=== PATIENT | female | born 1950 | race African-American/Black ===

== ENCOUNTER 2018-03-11 13:08 | Inpatient (IN) | payer BC ==
[~2018-03-11] VITALS: Ht 167.6 cm; Wt 58.3 kg
[~2018-03-11 13:08] MED LIST: ALEN70TA46 MT; ASPI-1159 MT; CHOL100053 PO; DOCU-138 MT; SIMV10TA6 PO; TAP5 MT
[2018-03-11] MEDS ORDERED: SODIUM CHLORIDE 0.9% 1,000 ML IV ONE (15:27)
[2018-03-11] MEDS ORDERED: ONDANSETRON HCL 4MG/2ML INJ IV STA (15:27)
[2018-03-11 16:47] LABS: BASOPHILS % 0.5 % (0.0-2.0); EOSINOPHILS % 0.1 % (0.0-5.0); HEMATOCRIT. 41.8 % (36.0-48.0); HEMOGLOBIN. 13.9 g/dL (12.0-16.0); LYMPHOCYTES % 20.4 % (20.0-50.0); MEAN CORPUSCULAR HEMOGLOBIN 28.5 pg (28.0-32.0); MEAN CORPUSCULAR VOLUME 85.5 fL (81.0-99.0); MEAN PLATELET VOLUME 9.7 fl (7.4-10.4); MONOCYTES % 5.5 % (2.0-8.0); NEUTROPHILS % 73.5 % (40.0-76.0); PLATELET 226 x1000/uL (130-400); RED CELL DISTRIBUTION WIDTH 16.2 % (11.6-14.6)
[2018-03-11 16:52] LABS: CHLORIDE 88 mEq/L (98-107)
[2018-03-11] MEDS ORDERED: ASPIRIN 325MG EC TABLET PO SCH (18:00)
[2018-03-11] MEDS ORDERED: AMLODIPINE 10MG TABLET PO SCH (18:00)
[2018-03-11] MEDS ORDERED: BENAZEPRIL 10MG TABLET PO SCH (18:00)
[2018-03-11 22:00] VITALS: BP 138/88
[2018-03-11 22:21] VITALS: BP 138/88
[2018-03-11 23:01] VITALS: BP 138/88
[2018-03-11] MEDS ORDERED: ACETAMINOPHEN 325MG TABLET PO PRN (23:30)
[2018-03-11] MEDS ORDERED: CLONIDINE 0.1MG TABLET PO PRN (23:30)
[2018-03-11] MEDS ORDERED: ONDANSETRON HCL 4MG/2ML INJ IV PRN (23:30)
[2018-03-11] MEDS ORDERED: BENA1TAB19 PO (23:37)
[2018-03-11] MEDS ORDERED: AMLO5TAB4 PO (23:37)
[2018-03-11] MEDS ORDERED: CHOLECALCIFEROL 50000 UNIT PO SCH (23:45)
[2018-03-12] VITALS: BP 153/88
[2018-03-12] MEDS ORDERED: ALENDRONATE SODIUM MT SCH (00:30)
[2018-03-12 04:00] VITALS: BP 145/83
[2018-03-12] MEDS: PANTOPRAZOLE 40MG DR TABLET PO SCH (06:51)
[2018-03-12] MEDS ORDERED: ALENDRONATE SODIUM 35MG TABLET PO SCH (07:10)
[2018-03-12 08:00] VITALS: BP 167/99
[2018-03-12 08:24] LABS: CREATINE KINASE MB FRACTION 3.3 ng/mL (0.5-3.6)
[2018-03-12] MEDS: BENAZEPRIL 10MG TABLET PO SCH (08:37)
[2018-03-12] MEDS: HYDROCHLOROTHIAZIDE 25MG TABLET PO SCH (08:38)
[2018-03-12] MEDS: ENOXAPARIN 40MG/0.4ML SYR SUBCUT SCH (08:39)
[2018-03-12] MEDS: ASPIRIN 81MG TABLET PO SCH (08:39)
[2018-03-12] MEDS: AMLODIPINE 5MG TABLET PO SCH (08:39)
[2018-03-12] MEDS ORDERED: SIMVASTATIN PO SCH (09:00)
[2018-03-12] MEDS ORDERED: MEDICATION NOT ON FORMULARY EA (Aspirin (Aspirin Low Dose) 1 TAB) MT SCH (09:00)
[2018-03-12] MEDS ORDERED: ERGOCALCIFEROL 50000UNITS CAPSULE PO SCH (09:00)
[2018-03-12] MEDS ORDERED: MEDICATION NOT ON FORMULARY EA (Amlodipine Besylate (Norvasc) 5 MG) PO SCH (09:00)
[2018-03-12] MEDS ORDERED: [UNRECOGNIZED DRUG - OTHER] PO SCH (09:00)
[2018-03-12] MEDS ORDERED: HYDROCHLOROTHIAZIDE PO SCH (09:00)
[2018-03-12] MEDS ORDERED: BENAZEPRIL PO SCH (09:00)
[2018-03-12 12:00] VITALS: BP 168/92
[2018-03-12 15:23] LABS: HEMATOCRIT 44.9 % (36.0-48.0); HEMOGLOBIN 14.9 g/dL (12.0-16.0); MEAN CORPUSCULAR HEMOGLOBIN 28.1 pg (28.0-32.0); MEAN CORPUSCULAR VOLUME 84.5 fL (81.0-99.0); PLATELET 244 x1000/uL (130-400); RED BLOOD CELL COUNT 5.31 mill/uL (4.2-5.4); RED CELL DISTRIBUTION WIDTH 15.8 % (11.6-14.6)
[2018-03-12 15:25] LABS: CHLORIDE 90 mEq/L (98-107)
[2018-03-12 16:00] VITALS: BP 131/92
[2018-03-12] MEDS: SODIUM CHLORIDE 0.9% 1,000 ML IV SCH (17:30)
[2018-03-12] MEDS ORDERED: POTASSIUM CHLORIDE INJ 40 MEQ in DEXT 5% WATER 500 ML IV SCH ×2 (17:30→21:30)
[2018-03-12 20:00] VITALS: BP 149/84
[2018-03-12] MEDS: ATORVASTATIN CALCIUM 10MG TABLET PO SCH (20:40)
[2018-03-12] MEDS ORDERED: ATORVASTATIN CALCIUM 20MG TABLET PO SCH (21:00)
[2018-03-13] VITALS: BP 170/88
[2018-03-13 04:00] VITALS: BP 98/65
[2018-03-13] MEDS: PANTOPRAZOLE 40MG DR TABLET PO SCH (06:21)
[2018-03-13] MEDS: SODIUM CHLORIDE 0.9% 1,000 ML IV SCH ×3 (06:50→20:29)
[2018-03-13 08:00] VITALS: BP 122/79
[2018-03-13] MEDS: AMLODIPINE 5MG TABLET PO SCH (08:27)
[2018-03-13] MEDS: HYDROCHLOROTHIAZIDE 25MG TABLET PO SCH (08:27)
[2018-03-13] MEDS: BENAZEPRIL 10MG TABLET PO SCH (08:28)
[2018-03-13] MEDS: ASPIRIN 81MG TABLET PO SCH (08:28)
[2018-03-13] MEDS: ENOXAPARIN 40MG/0.4ML SYR SUBCUT SCH (08:29)
[2018-03-13 08:45] LABS: BASOPHILS % 0.5 % (0.0-2.0); EOSINOPHILS % 0.6 % (0.0-5.0); HEMATOCRIT. 43.7 % (36.0-48.0); HEMOGLOBIN. 14.2 g/dL (12.0-16.0); LYMPHOCYTES % 39.5 % (20.0-50.0); MEAN CORPUSCULAR VOLUME 86.1 fL (81.0-99.0); MEAN PLATELET VOLUME 9.3 fl (7.4-10.4); MONOCYTES % 7.9 % (2.0-8.0); NEUTROPHILS % 51.5 % (40.0-76.0); PLATELET 233 x1000/uL (130-400); RED BLOOD CELL COUNT 5.07 mill/uL (4.2-5.4); RED CELL DISTRIBUTION WIDTH 16.1 % (11.6-14.6)
[2018-03-13] MEDS ORDERED: METHIMAZOLE 5MG TABLET PO SCH (09:00)
[2018-03-13 09:10] LABS: CHLORIDE 91 mEq/L (98-107)
[2018-03-13 12:00] VITALS: BP 101/64
[2018-03-13] MEDS ORDERED: POTASSIUM CHLORIDE INJ 40 MEQ in DEXT 5% WATER 250 ML IV NR (12:00)
[2018-03-13 15:19] LABS: CHLORIDE 95 mEq/L (98-107)
[2018-03-13] MEDS ORDERED: POTASSIUM CHLORIDE 20MEQ TABLET SR PO NR (15:30)
[2018-03-13 16:00] VITALS: BP 129/74
[2018-03-13] MEDS: POTASSIUM CHLORIDE 20MEQ TABLET SR PO SCH ×2 (17:17→18:36)
[2018-03-13 20:00] VITALS: BP 102/62
[2018-03-13] MEDS: ATORVASTATIN CALCIUM 10MG TABLET PO SCH (20:25)
[2018-03-14] VITALS: BP 114/69
[2018-03-14 04:00] VITALS: BP_SYST 110; BP_SYST 113; BP_SYST 122; BP_DIAS 62; BP_DIAS 71; BP_DIAS 81
[2018-03-14] MEDS: PANTOPRAZOLE 40MG DR TABLET PO SCH (06:51)
[2018-03-14 07:11] LABS: BASOPHILS % 0.7 % (0.0-2.0); EOSINOPHILS % 2.1 % (0.0-5.0); HEMATOCRIT. 39.5 % (36.0-48.0); HEMOGLOBIN. 12.9 g/dL (12.0-16.0); LYMPHOCYTES % 41.5 % (20.0-50.0); MEAN CORPUSCULAR HEMOGLOBIN 28.1 pg (28.0-32.0); MEAN CORPUSCULAR VOLUME 85.9 fL (81.0-99.0); MEAN PLATELET VOLUME 9.8 fl (7.4-10.4); MONOCYTES % 11.1 % (2.0-8.0); NEUTROPHILS % 44.6 % (40.0-76.0); PLATELET 206 x1000/uL (130-400); RED CELL DISTRIBUTION WIDTH 16.1 % (11.6-14.6)
[2018-03-14 08:00] VITALS: BP 132/72
[2018-03-14 08:12] LABS: CHLORIDE 102 mEq/L (98-107)
[2018-03-14] MEDS: ASPIRIN 81MG TABLET PO SCH (08:38)
[2018-03-14] MEDS: AMLODIPINE 5MG TABLET PO SCH (08:38)
[2018-03-14] MEDS: BENAZEPRIL 10MG TABLET PO SCH (08:38)
[2018-03-14] MEDS: ENOXAPARIN 40MG/0.4ML SYR SUBCUT SCH (08:39)
[2018-03-14 12:00] VITALS: BP 146/77
[2018-03-14 13:58] VITALS: BP 146/77
[2018-03-15] MEDS ORDERED: BENAZEPRIL 10MG TABLET PO SCH (09:00)
== END 2018-03-14 15:34 | disposition home or self-care (01) | DRG 640 ==
LOC: ER 13:08 → 8WST 17:31 → ENRESERV 20:30
PROVIDERS: ADMIT Internal Medicine; ATTEND Internal Medicine
DX: E86.0 Dehydration (principal); I50.33 Acute on chronic diastolic (congestive) heart failure; J44.1 Chronic obstructive pulmonary disease with (acute) exacerbation; K52.9 Noninfective gastroenteritis and colitis, unspecified; E87.1 Hypo-osmolality and hyponatremia; I11.0 Hypertensive heart disease with heart failure; F17.200 Nicotine dependence, unspecified, uncomplicated; E78.5 Hyperlipidemia, unspecified; T50.905A Adverse effect of unspecified drugs, medicaments and biological substances, initial encounter; E87.6 Hypokalemia; E05.90 Thyrotoxicosis, unspecified without thyrotoxic crisis or storm; I25.10 Atherosclerotic heart disease of native coronary artery without angina pectoris; I27.20 Pulmonary hypertension, unspecified; Z79.899 Other long term (current) drug therapy; Z79.82 Long term (current) use of aspirin; Y92.89 Other specified places as the place of occurrence of the external cause
CPT/HCPCS: 36415; 71045; 80048; 80061; 82550; 82553; 83735; 83880; 84132; 84443; 84484; 85027; 93005; 93306; 93970; 96361; 96374; 99285; C1893; J1650; J2405; J3480; J7030; J7040; J7060

== ENCOUNTER 2018-06-05 15:29 | Inpatient (IN) | payer BC ==
[~2018-06-05] VITALS: Ht 167.6 cm; Wt 56.7 kg
[~2018-06-05 15:29] MED LIST changes: +AMLO5TAB4 PO
[2018-06-05] MEDS ORDERED: IPRATROPIUM BROMIDE (0.02%) 0.5MG/2.5ML NEB HHN STA (15:51)
[2018-06-05] MEDS ORDERED: SODIUM CHLORIDE 0.9% 500 ML IV ONE (15:51)
[2018-06-05] MEDS ORDERED: ALBUTEROL (0.083%) 2.5MG/3ML NEB HHN STA (15:51)
[2018-06-05] MEDS ORDERED: ALBUTEROL (0.083%) 2.5MG/3ML NEB ONE (16:09)
[2018-06-05] MEDS ORDERED: IPRATROPIUM BROMIDE (0.02%) 0.5MG/2.5ML NEB ONE (16:09)
[2018-06-05 16:15] LABS: BASOPHILS % 1.9 % (0.0-2.0); EOSINOPHILS % 1.2 % (0.0-5.0); HEMATOCRIT. 41.2 % (36.0-48.0); HEMOGLOBIN. 13.5 g/dL (12.0-16.0); LYMPHOCYTES % 24.8 % (20.0-50.0); MEAN CORPUSCULAR HEMOGLOBIN 27.6 pg (28.0-32.0); MEAN CORPUSCULAR VOLUME 84.6 fL (81.0-99.0); MEAN PLATELET VOLUME 9.1 fl (7.4-10.4); MONOCYTES % 3.3 % (2.0-8.0); NEUTROPHILS % 68.8 % (40.0-76.0); PLATELET 253 x1000/uL (130-400); RED BLOOD CELL COUNT 4.87 mill/uL (4.2-5.4); RED CELL DISTRIBUTION WIDTH 14.9 % (11.6-14.6)
[2018-06-05 16:19] LABS: CHLORIDE 105 mEq/L (98-107)
[2018-06-05 16:21] LABS: PARTIAL THROMBOPLASTIN TIME 31.8 sec (23.4-31.0); PROTHROMBIN TIME 10.1 sec (9.6-11.0)
[2018-06-05] MEDS ORDERED: DOCUSATE SODIUM 100MG CAPSULE PO PRN (16:45)
[2018-06-05] MEDS ORDERED: NA PHOS,M-B/NA PHOS,DI-BA ENEMA 118ML PR PRN (16:45)
[2018-06-05] MEDS ORDERED: MAGNESIUM/ALUMINUM HYDROXIDE/SIMETHICONE 30ML UDC PO PRN (16:45)
[2018-06-05] MEDS ORDERED: DIPHENHYDRAMINE 50MG/ML VIAL IV PRN (16:45)
[2018-06-05] MEDS ORDERED: ONDANSETRON HCL 4MG/2ML INJ IV PRN (16:45)
[2018-06-05] MEDS ORDERED: LORAZEPAM 0.5MG TABLET PO PRN (16:45)
[2018-06-05] MEDS ORDERED: GUAIFENESIN 200MG/10ML SUGAR FREE UDC PO PRN (16:45)
[2018-06-05] MEDS ORDERED: HYDROCODONE/ACETAMINOPHEN 5/325MG TABLET PO PRN (16:45)
[2018-06-05] MEDS ORDERED: ACETAMINOPHEN 650MG SUPP PR PRN (16:45)
[2018-06-05] MEDS ORDERED: CLONIDINE 0.1MG TABLET PO PRN (16:45)
[2018-06-05] MEDS ORDERED: ACETAMINOPHEN 325MG TABLET PO PRN (16:45)
[2018-06-05] MEDS ORDERED: IPRATROPIUM/ALBUTEROL 0.5-3(2.5)MG/3ML NEB INH PRN (16:45)
[2018-06-05] MEDS ORDERED: POTASSIUM CHLORIDE 20MEQ TABLET SR PO ONE (17:00)
[2018-06-05] MEDS ORDERED: SODIUM CHLORIDE 0.45% 1,000 ML IV SCH (17:15)
[2018-06-05 18:02] LABS: CLARITY URINE CLEAR (CLEAR); COLOR URINE YELLOW (YELLOW); KETONES URINE NEGATIVE (NEGATIVE); LEUKOCYTE ESTERASE URINE NEGATIVE (NEGATIVE); NITRITE URINE NEGATIVE (NEGATIVE); OCCULT BLOOD URINE NEGATIVE (NEGATIVE); PROTEIN URINE NEGATIVE (NEGATIVE); SPECIFIC GRAVITY URINE 1.004 (1.005-1.030); UROBILINOGEN URINE 0.2 E.U./dL (0.2-1.0)
[2018-06-05 18:18] LABS: *AMPHETAMINES SCREEN URINE NEGATIVE (NEGATIVE); *BARBITURATES SCREEN URINE NEGATIVE (NEGATIVE); *COCAINE SCREEN URINE NEGATIVE (NEGATIVE); CANNABINOID URINE SCREEN PRESUMTIVE POSITIVE (NEGATIVE); METHADONE URINE SCREEN NEGATIVE (NEGATIVE); OPIATES URINE SCREEN NEGATIVE (NEGATIVE); PHENCYCLIDINE URINE SCREEN NEGATIVE (NEGATIVE)
[2018-06-05 18:19] LABS: *BENZODIAZEPINES SCREEN URINE NEGATIVE (NEGATIVE)
[2018-06-05 21:51] VITALS: BP 168/81
[2018-06-05 22:00] VITALS: BP 168/81
[2018-06-05] MEDS ORDERED: POTASSIUM CHLORIDE 20MEQ TABLET SR PO NR (22:00)
[2018-06-05] MEDS: DILTIAZEM HCL 30MG TABLET PO SCH (22:00)
[2018-06-05] MEDS: PANTOPRAZOLE SODIUM 40 MG/VIAL IV SCH ×2 (22:00→22:43)
[2018-06-05] MEDS: METRONIDAZOLE 500MG TABLET PO SCH (22:42)
[2018-06-05] MEDS: AMLODIPINE 5MG TABLET PO SCH (22:43)
[2018-06-05] MEDS ORDERED: LEVOFLOXACIN 500MG PREMIX 100 ML IV NR (23:00)
[2018-06-06] VITALS: BP 149/83
[2018-06-06] MEDS ORDERED: IRON (00:41)
[2018-06-06] MEDS: IPRATROPIUM/ALBUTEROL 0.5-3(2.5)MG/3ML NEB HHN SCH ×4 (01:00→13:36)
[2018-06-06 02:21] LABS: CREATINE KINASE MB FRACTION 1.2 ng/mL (0.5-3.6)
[2018-06-06 04:00] VITALS: BP_SYST 120; BP_SYST 138; BP_SYST 154; BP_DIAS 75; BP_DIAS 84
[2018-06-06] MEDS: DILTIAZEM HCL 30MG TABLET PO SCH (05:16)
[2018-06-06] MEDS: METRONIDAZOLE 500MG TABLET PO SCH (05:16)
[2018-06-06 06:17] LABS: BASOPHILS % 1.4 % (0.0-2.0); EOSINOPHILS % 2.5 % (0.0-5.0); HEMATOCRIT. 35.7 % (36.0-48.0); HEMOGLOBIN. 11.6 g/dL (12.0-16.0); LYMPHOCYTES % 44.2 % (20.0-50.0); MEAN CORPUSCULAR HEMOGLOBIN 27.9 pg (28.0-32.0); MEAN CORPUSCULAR VOLUME 85.9 fL (81.0-99.0); MEAN PLATELET VOLUME 9.5 fl (7.4-10.4); MONOCYTES % 8.3 % (2.0-8.0); NEUTROPHILS % 43.6 % (40.0-76.0); PLATELET 222 x1000/uL (130-400); RED BLOOD CELL COUNT 4.15 mill/uL (4.2-5.4); RED CELL DISTRIBUTION WIDTH 14.6 % (11.6-14.6)
[2018-06-06 06:24] LABS: LDL CHOLESTEROL 104 mg/dL (5-100)
[2018-06-06 06:25] LABS: CREATINE KINASE 48 IU/L (26-192); HDL CHOLESTEROL 47 mg/dL (40-59)
[2018-06-06 06:27] LABS: CREATINE KINASE MB FRACTION < 1.0 ng/mL (0.5-3.6)
[2018-06-06 08:00] VITALS: BP 134/71
[2018-06-06] MEDS: AMLODIPINE 5MG TABLET PO SCH (08:51)
[2018-06-06] MEDS: PANTOPRAZOLE SODIUM 40 MG/VIAL IV SCH (08:52)
[2018-06-06] MEDS ORDERED: ENOXAPARIN 40MG/0.4ML SYR SUBCUT SCH (09:00)
[2018-06-06] MEDS ORDERED: ASPIRIN 81MG EC TABLET PO SCH (09:00)
[2018-06-06] MEDS ORDERED: POTASSIUM CHLORIDE 20MEQ TABLET SR PO NR (10:30)
[2018-06-06] MEDS ORDERED: SODIUM CHLORIDE 0.9% 250 ML IV ONE (10:45)
[2018-06-06 11:11] LABS: BASOPHILS % 2.7 % (0.0-2.0); EOSINOPHILS % 0.7 % (0.0-5.0); HEMATOCRIT. 36.5 % (36.0-48.0); HEMOGLOBIN. 11.9 g/dL (12.0-16.0); LYMPHOCYTES % 31.6 % (20.0-50.0); MEAN CORPUSCULAR HEMOGLOBIN 27.9 pg (28.0-32.0); MEAN CORPUSCULAR VOLUME 85.2 fL (81.0-99.0); MEAN PLATELET VOLUME 8.7 fl (7.4-10.4); PLATELET 222 x1000/uL (130-400); RED BLOOD CELL COUNT 4.28 mill/uL (4.2-5.4); RED CELL DISTRIBUTION WIDTH 14.8 % (11.6-14.6)
[2018-06-06 11:30] LABS: CHLORIDE 108 mEq/L (98-107)
[2018-06-06 11:38] VITALS: BP_SYST 135; BP_SYST 138; BP_DIAS 76; BP_DIAS 88; BP_DIAS 93
[2018-06-06] MEDS ORDERED: LEVOFLOXACIN 250MG PREMIX 50 ML IV SCH ×2 (14:00→23:00)
[2018-06-06 14:35] VITALS: BP 135/88
== END 2018-06-06 15:01 | disposition home or self-care (01) | DRG 74 ==
LOC: ER 15:29 → 6WST 16:50 → EDBEDREQ 16:57 → ENRESERV 20:48
PROVIDERS: ADMIT Internal Medicine; ATTEND Internal Medicine
DX: G90.8 Other disorders of autonomic nervous system (principal); J98.11 Atelectasis; J44.1 Chronic obstructive pulmonary disease with (acute) exacerbation; I27.20 Pulmonary hypertension, unspecified; I10 Essential (primary) hypertension; J44.9 Chronic obstructive pulmonary disease, unspecified; E78.5 Hyperlipidemia, unspecified; E86.0 Dehydration; R73.9 Hyperglycemia, unspecified; E05.90 Thyrotoxicosis, unspecified without thyrotoxic crisis or storm; H05.20 Unspecified exophthalmos; K52.9 Noninfective gastroenteritis and colitis, unspecified; E16.2 Hypoglycemia, unspecified; I95.9 Hypotension, unspecified; E87.6 Hypokalemia; I49.9 Cardiac arrhythmia, unspecified; F17.210 Nicotine dependence, cigarettes, uncomplicated; M81.0 Age-related osteoporosis without current pathological fracture; Z86.73 Personal history of transient ischemic attack (TIA), and cerebral infarction without residual deficits; Z79.82 Long term (current) use of aspirin; Z79.899 Other long term (current) drug therapy; Z71.6 Tobacco abuse counseling
CPT/HCPCS: 36415; 71045; 80048; 80061; 80305; 80320; 82550; 82553; 82962; 83735; 83880; 84439; 84443; 84484; 93005; 93880; 94640; 99285; C9113; J1650; J1956; J7040; J7050; J7611; J7620; G0480

== ENCOUNTER 2018-06-18 18:13 | Inpatient (IN) | payer BC ==
[~2018-06-18] VITALS: Ht 167.6 cm; Wt 56.7 kg
[~2018-06-18 18:13] MED LIST changes: +IRON
[2018-06-18] MEDS ORDERED: HYDRALAZINE 20MG/ML VIAL IV ONE (20:00)
[2018-06-18 20:01] LABS: CLARITY URINE CLEAR (CLEAR); COLOR URINE YELLOW (YELLOW); KETONES URINE NEGATIVE (NEGATIVE); LEUKOCYTE ESTERASE URINE NEGATIVE (NEGATIVE); NITRITE URINE NEGATIVE (NEGATIVE); OCCULT BLOOD URINE TRACE (NEGATIVE); PH URINE 7.5 (4.5-8.0); PROTEIN URINE TRACE (NEGATIVE); SPECIFIC GRAVITY URINE 1.013 (1.005-1.030); UROBILINOGEN URINE 0.2 E.U./dL (0.2-1.0)
[2018-06-18 20:29] LABS: CHLORIDE 101 mEq/L (98-107)
[2018-06-18 20:30] LABS: BASOPHILS % 0.6 % (0.0-2.0); HEMATOCRIT. 39.4 % (36.0-48.0); HEMOGLOBIN. 12.8 g/dL (12.0-16.0); LYMPHOCYTES % 15.1 % (20.0-50.0); MEAN CORPUSCULAR HEMOGLOBIN 27.4 pg (28.0-32.0); MEAN CORPUSCULAR VOLUME 84.5 fL (81.0-99.0); MEAN PLATELET VOLUME 9.6 fl (7.4-10.4); MONOCYTES % 2.4 % (2.0-8.0); NEUTROPHILS % 81.9 % (40.0-76.0); PLATELET 277 x1000/uL (130-400); RED BLOOD CELL COUNT 4.67 mill/uL (4.2-5.4); RED CELL DISTRIBUTION WIDTH 15.1 % (11.6-14.6)
[2018-06-18] MEDS ORDERED: SODIUM CHLORIDE 0.9% 1,000 ML IV ONE (20:45)
[2018-06-18] MEDS ORDERED: ONDANSETRON HCL 4MG/2ML INJ IV ONE ×2 (20:45→23:00)
[2018-06-19 10:10] VITALS: BP_SYST 167; BP_SYST 170; BP_DIAS 86; BP_DIAS 88
[2018-06-19] MEDS ORDERED: DOCUSATE SODIUM 100MG CAPSULE PO PRN (11:30)
[2018-06-19] MEDS ORDERED: IPRATROPIUM/ALBUTEROL 0.5-3(2.5)MG/3ML NEB INH PRN (11:30)
[2018-06-19] MEDS ORDERED: ONDANSETRON HCL 4MG/2ML INJ IV PRN (11:30)
[2018-06-19] MEDS ORDERED: LORAZEPAM 0.5MG TABLET PO PRN (11:30)
[2018-06-19] MEDS ORDERED: ACETAMINOPHEN 650MG SUPP PR PRN (11:30)
[2018-06-19] MEDS ORDERED: DIPHENHYDRAMINE 50MG/ML VIAL IV PRN (11:30)
[2018-06-19] MEDS ORDERED: HYDROCODONE/ACETAMINOPHEN 5/325MG TABLET PO PRN (11:30)
[2018-06-19] MEDS ORDERED: CLONIDINE 0.1MG TABLET PO PRN (11:30)
[2018-06-19] MEDS ORDERED: MAGNESIUM/ALUMINUM HYDROXIDE/SIMETHICONE 30ML UDC PO PRN (11:30)
[2018-06-19] MEDS ORDERED: NA PHOS,M-B/NA PHOS,DI-BA ENEMA 118ML PR PRN (11:30)
[2018-06-19] MEDS ORDERED: ACETAMINOPHEN 325MG TABLET PO PRN (11:30)
[2018-06-19] MEDS ORDERED: GUAIFENESIN 200MG/10ML SUGAR FREE UDC PO PRN (11:30)
[2018-06-19] MEDS ORDERED: LOSARTAN POTASSIUM 50 MG TABLET PO SCH ×2 (11:48→14:45)
[2018-06-19] MEDS ORDERED: BENA5TAB6 PO (11:55)
[2018-06-19 12:00] VITALS: BP 174/97
[2018-06-19] MEDS ORDERED: ENOXAPARIN 40MG/0.4ML SYR SUBCUT SCH (12:00)
[2018-06-19 12:55] LABS: HEMATOCRIT. 39.8 % (36.0-48.0); MEAN CORPUSCULAR HEMOGLOBIN 27.5 pg (28.0-32.0); MEAN CORPUSCULAR VOLUME 84.2 fL (81.0-99.0); PLATELET 316 x1000/uL (130-400); RED BLOOD CELL COUNT 4.72 mill/uL (4.2-5.4); RED CELL DISTRIBUTION WIDTH 15.3 % (11.6-14.6)
[2018-06-19 13:04] LABS: PROTHROMBIN TIME 9.9 sec (9.6-11.0)
[2018-06-19 13:06] LABS: CHLORIDE 99 mEq/L (98-107)
[2018-06-19 13:25] LABS: PLATELET ESTIMATE NORMAL
[2018-06-19 13:43] LABS: VITAMIN B12 SERUM 309 pg/mL (211-911)
[2018-06-19] MEDS ORDERED: METRONIDAZOLE 500MG TABLET PO SCH (14:00)
[2018-06-19] MEDS ORDERED: POTASSIUM CHLORIDE 20MEQ TABLET SR PO NR (14:30)
[2018-06-19] MEDS ORDERED: SODIUM CHLORIDE 0.9% 1,000 ML IV SCH (14:30)
[2018-06-19] MEDS ORDERED: AMLODIPINE 5MG TABLET PO NR (14:45)
[2018-06-19 16:00] VITALS: BP 160/86
[2018-06-19 18:51] VITALS: BP 161/86
[2018-06-19] MEDS ORDERED: AMLODIPINE 5MG TABLET PO SCH (21:00)
[2018-06-19] MEDS ORDERED: FAMOTIDINE 20MG/2ML VIAL IV SCH ×2 (21:00)
[2018-06-20] MEDS ORDERED: ASPIRIN 81MG EC TABLET PO SCH (09:00)
== END 2018-06-19 19:25 | disposition home or self-care (01) | DRG 372 ==
LOC: ER 18:13 → 7WST 21:40 → EDBEDREQTM 21:48 → EDBEDREQ 21:48 → ENRESERV 06-19 09:18 → 7WST 06-19 13:25
PROVIDERS: ADMIT Internal Medicine; ATTEND Internal Medicine
DX: A04.72 Enterocolitis due to Clostridium difficile, not specified as recurrent (principal); J44.1 Chronic obstructive pulmonary disease with (acute) exacerbation; N39.0 Urinary tract infection, site not specified; I10 Essential (primary) hypertension; K52.9 Noninfective gastroenteritis and colitis, unspecified; F41.9 Anxiety disorder, unspecified; E05.00 Thyrotoxicosis with diffuse goiter without thyrotoxic crisis or storm; R74.8 Abnormal levels of other serum enzymes; I45.81 Long QT syndrome; R63.4 Abnormal weight loss; I27.20 Pulmonary hypertension, unspecified; E87.6 Hypokalemia; E86.0 Dehydration; E78.5 Hyperlipidemia, unspecified; Z79.82 Long term (current) use of aspirin; Z79.899 Other long term (current) drug therapy; Z68.20 Body mass index [BMI] 20.0-20.9, adult
CPT/HCPCS: 36415; 71045; 74176; 82378; 82550; 82553; 82607; 83036; 83880; 84484; 86038; 93005; 93970; 96361; 96374; 96375; 96376; 99285; J0360; J1650; J2405; J7030

== ENCOUNTER 2022-04-12 06:18 | Inpatient (IN) | payer BC ==
[~2022-04-12] VITALS: Ht 167.6 cm; Wt 58.5 kg
[~2022-04-12 06:18] MED LIST changes: -ALEN70TA46 MT; +ALEN70TA79 MT; -ASPI-1159 MT; +ASPI-1497 MT; +BENA5TAB40 PO; -IRON; +METH-371 MT; -SIMV10TA6 PO; +SIMV10TA97 PO; -TAP5 MT
[2022-04-12 06:51] LABS: BASOPHILS % 0.8 % (0.0-2.0); EOSINOPHILS % 2.5 % (0.0-5.0); HEMOGLOBIN. 15.6 g/dL (12.0-16.0); LYMPHOCYTES % 43.8 % (20.0-50.0); MEAN CORPUSCULAR HEMOGLOBIN 28.1 pg (28.0-32.0); MEAN CORPUSCULAR VOLUME 88.2 fL (81.0-99.0); MEAN PLATELET VOLUME 9.8 fl (7.4-10.4); MONOCYTES % 5.2 % (2.0-8.0); NEUTROPHILS % 47.7 % (40.0-76.0); PLATELET 251 x1000/uL (130-400); RED BLOOD CELL COUNT 5.56 mill/uL (4.2-5.4); RED CELL DISTRIBUTION WIDTH 15.4 % (11.6-14.6)
[2022-04-12 07:02] LABS: CHLORIDE 107 mEq/L (98-107)
[2022-04-12 07:48] LABS: T4 FREE 1.12 ng/dL (0.76-1.46)
[2022-04-12] MEDS ORDERED: ENOXAPARIN 60MG/0.6ML SYR SUBCUT ONE (12:30)
[2022-04-12] MEDS ORDERED: ACETAMINOPHEN 325MG TABLET PO PRN (14:45)
[2022-04-12] MEDS ORDERED: ONDANSETRON HCL 4MG/2ML INJ IV PRN (14:45)
[2022-04-12] MEDS ORDERED: ENOXAPARIN 40MG/0.4ML SYR SUBCUT SCH (15:00)
[2022-04-12] MEDS ORDERED: HYDRALAZINE 20MG/ML VIAL IV PRN (18:00)
[2022-04-12] MEDS ORDERED: ATORVASTATIN CALCIUM 40MG TABLET PO SCH (21:00)
[2022-04-12] MEDS: AMLODIPINE 5MG TABLET PO SCH (23:49)
[2022-04-12 23:55] VITALS: BP 162/96
[2022-04-13] VITALS: BP 162/96
[2022-04-13] MEDS ORDERED: CLONIDINE 0.1MG TABLET PO PRN (00:45)
[2022-04-13] MEDS ORDERED: POTASSIUM CHLORIDE 20MEQ TABLET SR PO NR (00:45)
[2022-04-13 02:42] LABS: CREATINE KINASE MB FRACTION 2.2 ng/mL (0.5-3.6)
[2022-04-13 02:50] LABS: HEPATITIS B SURFACE ANTIGEN NEGATIVE
[2022-04-13 04:00] VITALS: BP 150/88
[2022-04-13] MEDS: METOPROLOL TARTRATE 50MG TABLET PO SCH ×2 (04:07→08:14)
[2022-04-13 06:26] LABS: BASOPHILS % 0.8 % (0.0-2.0); EOSINOPHILS % 0.9 % (0.0-5.0); HEMATOCRIT. 43.1 % (36.0-48.0); HEMOGLOBIN. 14.2 g/dL (12.0-16.0); LYMPHOCYTES % 34.9 % (20.0-50.0); MEAN CORPUSCULAR HEMOGLOBIN 28.6 pg (28.0-32.0); MEAN PLATELET VOLUME 10.3 fl (7.4-10.4); MONOCYTES % 8.1 % (2.0-8.0); NEUTROPHILS % 55.3 % (40.0-76.0); PLATELET 257 x1000/uL (130-400); RED BLOOD CELL COUNT 4.96 mill/uL (4.2-5.4); RED CELL DISTRIBUTION WIDTH 14.8 % (11.6-14.6)
[2022-04-13 06:49] LABS: CHLORIDE 106 mEq/L (98-107)
[2022-04-13 07:09] LABS: CREATINE KINASE 83 IU/L (26-192); CREATINE KINASE MB FRACTION 2.6 ng/mL (0.5-3.6); HDL CHOLESTEROL 68 mg/dL (40-59); LDL CHOLESTEROL 80 mg/dL (5-100)
[2022-04-13 08:00] VITALS: BP 175/95
[2022-04-13] MEDS: AMLODIPINE 5MG TABLET PO SCH (08:13)
[2022-04-13] MEDS ORDERED: ASPIRIN 81MG TABLET PO SCH (09:00)
[2022-04-13] MEDS ORDERED: ENOXAPARIN 40MG/0.4ML SYR SUBCUT SCH (09:00)
[2022-04-13] MEDS ORDERED: BENAZEPRIL 5MG TABLET PO SCH (09:00)
[2022-04-13] MEDS ORDERED: ASPIRIN 81MG EC TABLET PO SCH (09:00)
[2022-04-13] MEDS ORDERED: AMLODIPINE 5MG TABLET PO NR (09:45)
[2022-04-13] MEDS ORDERED: METO-539 PO (10:37)
[2022-04-13 12:00] VITALS: BP 145/88
[2022-04-13 12:34] VITALS: BP 145/88
[2022-04-14] MEDS ORDERED: AMLODIPINE 10MG TABLET PO SCH (09:00)
[2022-04-14] MEDS ORDERED: METHIMAZOLE 5MG TABLET PO SCH (09:00)
== END 2022-04-13 14:18 | disposition home or self-care (01) | DRG 305 ==
LOC: ER 06:38 → MICUSO 09:29 → UNDOADMIN 09:29 → EDBEDREQ 09:33 → EDBEDREQTM 09:33 → 3WST 22:56
PROVIDERS: ADMIT Internal Medicine; ATTEND Internal Medicine
DX: I16.0 Hypertensive urgency (principal); I47.1 Supraventricular tachycardia; E05.90 Thyrotoxicosis, unspecified without thyrotoxic crisis or storm; E78.00 Pure hypercholesterolemia, unspecified; E87.6 Hypokalemia; I10 Essential (primary) hypertension; E03.9 Hypothyroidism, unspecified; E78.5 Hyperlipidemia, unspecified; F17.210 Nicotine dependence, cigarettes, uncomplicated; Z79.82 Long term (current) use of aspirin; Z79.899 Other long term (current) drug therapy
CPT/HCPCS: 36415; 71045; 80048; 80053; 80061; 82550; 82553; 82962; 83735; 83880; 84439; 84443; 84481; 84484; 85025; 86803; 87340; 93005; 99285; J0360; J1650